=== PATIENT | male | born 1980 | race Caucasian/White ===

== ENCOUNTER 2016-11-17 07:16 | Day surgery (SDC) | payer OTHER ==
[~2016-11-17] VITALS: Ht 170.2 cm; Wt 81.5 kg
[2016-11-17 08:15] VITALS: Ht 170.2 cm; Wt 81.5 kg
[2016-11-17 08:26] VITALS: BP 97/61; PULSE 61; RESP 23
[2016-11-17 08:29] VITALS: BP 97/61; PULSE 62; RESP 23
[2016-11-17] MEDS ORDERED: MIDAZOLAM 1 MG/ML 2 ML INJ ONE ×3 (10:05)
[2016-11-17] MEDS ORDERED: FENTAnyl 50 MCG/ML VIAL ONE ×2 (10:06)
[2016-11-17 10:25] VITALS: BP 104/64; PULSE 78; RESP 17
--- NOTE | 2016-11-17 22:21 | GILP ---
DATE OF PROCEDURE: NAME OF PROCEDURES: Colonoscopy and biopsy. SURGEON: Jaiden Bonner MD PREOPERATIVE DIAGNOSES: 1. Rectal bleeding. 2. History of diarrhea. POSTOPERATIVE DIAGNOSES: 1. Colonoscopy all the way to the cecum. 2. Nonspecific small ulcers and biopsies were taken for histopathology. 3. Internal hemorrhoids. INDICATION FOR THE PROCEDURE: Mr. Beka Brooks is a 36-year-old male patient who had history of diar roxanna. The patient had positive occult blood in stool. The patient was scheduled for colonoscopy fo r further evaluation. The procedure and possible complications are well explained to the patient. The patient understood and consented to the procedure. DESCRIPTION OF PROCEDURE: Under the influence of fentanyl and Versed, the colonoscope was carefully introduced in the rectum and, under direct vision, it was advanced all the way to the cecum. FINDINGS: The patient had nonspecific ulcers in the colon and biopsies were taken for histopatholog y. The patient had internal hemorrhoids. He tolerated the procedure very well and there was no complication from the procedure. At the end o f the procedure, he was awake with stable vital signs and he was discharged home to the care of his family. IMPRESSION: 1. Colonoscopy all the way to the cecum. 2. Three small nonspecific ulcers in the colon and biopsies were taken for histopathology. 3. Internal hemorrhoids. PLAN: 1. Bentyl 10 mg p.o. q.a.m. a.c. 2. Await histopathology report. Dictated By: JAIDEN LEVINE/ILA Conf#: [id number] DID#: [id number] CC: JAIDEN BONNER MD;*EndCC*
== END 2016-11-17 12:20 | disposition home or self-care (01) ==
LOC: GIL 07:16
PROVIDERS: ATTEND Internal Medicine Gastroenterology
DX: K92.1 Melena (principal); K63.3 Ulcer of intestine; K64.8 Other hemorrhoids
CPT/HCPCS: 45380; 88305; J2250; J3010; Z7610